=== PATIENT | female | born 1985 | race Caucasian/White ===

== ENCOUNTER → 2017-10-29 | Outpatient (CLI) | payer OTHER | LOC: FIMAGING 08:49 | PROVIDERS: ATTEND Advanced Practice Midwife | DX: Z34.01 Encounter for supervision of normal first pregnancy, first trimester (principal); Z3A.11 11 weeks gestation of pregnancy ==

== ENCOUNTER 2018-05-23 09:00 | Inpatient (IN) | payer OTHER ==
[2018-05-27] MEDS ORDERED: LR 1,000 ML IV PRN (03:40)
[2018-05-27] MEDS ORDERED: MISOPROSTOL 200 MCG TAB PR PRN (03:40)
[2018-05-27] MEDS ORDERED: TERBUTALINE SULFATE 1 MG/ML VIAL IV PRN (03:40)
[2018-05-27] MEDS ORDERED: OXYTOCIN/RINGERS LACTATE 1,000 ML IV PRN (03:40)
[2018-05-27] MEDS ORDERED: IBUPROFEN 600 MG TAB PO PRN (03:40)
[2018-05-27] MEDS ORDERED: OLIVE OIL 118 ML BTL MISC PRN (03:40)
[2018-05-27] MEDS ORDERED: EPSOM SALT 454 GM TP PRN (03:40)
[2018-05-27] MEDS ORDERED: LIDOCAINE 1% 300 MG/30 ML SDV SC PRN (03:40)
[2018-05-27 04:54] LABS: PLATELET COUNT 214 10^3/uL (150-400)
[2018-05-27] MEDS ORDERED: AMMONIA AROMATIC 1 EACH AMP IH ONE (07:04)
[2018-05-27] MEDS ORDERED: TERBUTALINE SULFATE 1 MG/ML VIAL ONE (07:04)
[2018-05-27] MEDS ORDERED: LIDOCAINE 1% 300 MG/30 ML SDV ONE (07:04)
[2018-05-27] MEDS ORDERED: OLIVE OIL 118 ML BTL ONE (07:04)
[2018-05-27] MEDS ORDERED: OXYTOCIN 10 UNIT/ML VIAL ONE (07:05)
[2018-05-27] MEDS ORDERED: MISOPROSTOL 200 MCG TAB ONE (07:05)
--- NOTE | 2018-05-27 08:48 | PDGENHP ---
History and Physical History and Physical: CARE: [facility] HPI: Patient is a 32 yo G 1 P 0 @ 41 weeks 6 days that presents to L&D with complaints of SROM and uterine ctx. EDC: 05/14/18 which is based on LMP: 08/07/18 which is known and consistent with Ultrasound at 8 weeks. Her is complicated by: + ABS which is clinically insignificant, + CF carrier screen, varicella Non-Immune. Review of Systems: Constitutional: Denies any fever, chills, or fatigue HEENT: denies any visual changes, difficulty swallowing, hearing loss Cardiovascular: Denies any chest pain, palpitations, leg swelling Respiratory: denies any cough, wheezing, or shortness of breathe GI: Denies any nausea, vomiting, diarrhea, constipation : denies any dysuria, urgency, frequency, vaginal bleeding Musculoskeletal: denies any muscle or bone pain Skin: denies any rashes Neuro: denies any headache, seizures, lightheadedness, dizziness, or loss of consciousness Psychiatric: denies any depression, anxiety, or SI/HI thoughts HISTORY: Previous OB history: nullip Past medical history: neg Past surgical history: neg Medications: PNV Allergies (list reaction): NKDA LABS: Rh: O+ ABS: Pos Rubella: Immune HbsAg: NR HIV: NR VDRL: NR 1hr: pt declined GC: Neg Chlamydia: Neg Pap: Normal GBS: neg BMI: (prepreg) 23 PHYSICAL EXAM: Constitutional: WNL, A&Ox3 HEENT: normocephalic atraumatic, supple Heart: RRR, no murmur Chest: CTA-B Abdomen: Soft, nontender, gravid SVE: 5/90/-3 at 0700 Extremities: trace edema, negative homans sign Neuro: grossly normal Psych: normal affect assessment: FHT baseline 145, +accels, no decels, moderate variability Contractions: toco q 2-3 Assessment: 1) 32 yo G 1 P 0 with IUP@ 41w6d 2) spontaneous labor 3) GBS neg 4) Cat 1 FHR tracing 5) coping well with labor Plan: 1) Admit to L&D 2) Anticipate vag delivery 3) Intermittent monitoring per [facility] guidelines 4) Pt desires low intervention.
--- NOTE | 2018-05-27 11:21 | OBPROG ---
Labor Progress Note Assessment/Plan: Assessment: Plan: 05/27/18 11:18 IUP at 41 w 6 d active labor Objective: 05/27/18 04:15 Patient ABO/Rh O POSITIVE 05/27/18 04:15 - SVE Dilation (cm): 9 Effacement (%): 90 Station: 0 Membranes: SROM Amniotic Fluid Color: Clear - Contraction Pattern Assessment Current Contraction Pattern: Regular (q 5 min) - FHR Assessment García FHR (bpm): 135 (130-140 with intermittent auscultation, no audible decels with ctx) - AP Antepartum Course: 05/27/18 11:20 anticipate vaginal delivery, Dr. Elder aware of pt progress Oxytocin Orders Assessment - Pre-Induction/Augmentation Assessment Gestational Age: 41 week(s) and 6 day(s) ICD10 Worksheet Patient Problems: Problems Problem Status Onset Labor without complication Acute Post term at 41 weeks gestation Acute - ICD10 Problem Qualifiers (1) Post term at 41 weeks gestation (2) Labor without complication
--- NOTE | 2018-05-27 15:10 | OBDEL ---
Info Type: Vaginal Presentation at Delivery: Vertex L&D Analgesia/Anesthesia Type: None GBS+: No Indications for Delivery: Spontaneous Labor, SROM Vaginal Delivery - Delivery Provider Delivery Physician/CNM: Soraya Hutchinson (Dr. Cat Terrell procyoni) - Labor and Delivery Onset of Contractions Date: 05/27/18 Onset of Contractions Time: 05:30 Onset of Contractions Type: Spontaneous Rupture of Membranes Date: 05/27/18 Rupture of Membranes Time: 01:20 Rupture of Membranes Type: Spontaneous Amniotic Fluid Color: Clear Placenta Delivery Date: 05/27/18 Placenta Delivery Time: 14:36 Total Hours of Labor: 9 Laceration: 2nd Degree Repair: 3-0, Vicryl Vaginal Sponge Count Correct: Yes Vaginal Needle Count Correct: Yes Vaginal Sweep Performed: Yes EBL: 250 Delivery Events: Other (Specify) (compound presentation, R hand by face) Delivery Comment: Mom progressed well to complete with transmission systems operator and partner support for pain management. Pushed ineffectively after complete until small crown, then pushed well with ctx. FHT reassuring throughout 2nd stage with occasional decel during contraction to 90-100 bpm, then return to baseline. Head delivered in WILIAN over intact perineum. Shoulders and body followed atraumatically with maternal pushing effort on next contraction. Compound hand noted at time of delivery. placed on maternal abdomen and assessed by RN. Delayed cord clamping supported for family. FOB cut cord at appoximately 7 min. Placenta delivered spontaneous and appeared intact. Perineum inspected and 2nd degree laceration repaired in usual fashion with 3.0 vicryl under local anesthesia. EBL 250 ml. Mother and baby assisted with breast feeding, both stable in room at this time. - Medications Labor Augmentation/Induction Methods Used: None Labor Augmentation/Induction Indication: Post Dates [place] Data JONATHAN: 05/14/18 Gestational Age: 41 week(s) and 6 day(s) García Delivery Date: 05/27/18 Delivery Time: 14:26 Sex of Infant: Female Score (1 Min): 8 Score (5 Min): 9 (weight not available at this time) ICD10 Worksheet Patient Problems: Problems Problem Status Onset Labor without complication Acute Post term at 41 weeks gestation Acute - ICD10 Problem Qualifiers (1) Post term at 41 weeks gestation (2) Labor without complication
[2018-05-27] MEDS: PROCTOFOAM HC 10 GM CAN PR SCH ×2 (15:33→21:00)
[2018-05-27] MEDS: DOCUSATE SODIUM 100 MG CAP PO PRN (21:45)
[2018-05-27] MEDS: IBUPROFEN 600 MG TAB PO SCH (21:46)
[2018-05-27] MEDS: ACETAMINOPHEN 325 MG TAB PO SCH (23:08)
[2018-05-28] MEDS: IBUPROFEN 600 MG TAB PO SCH ×4 (04:11→23:46)
[2018-05-28] MEDS: ACETAMINOPHEN 325 MG TAB PO SCH ×4 (05:00→23:55)
--- NOTE | 2018-05-28 11:04 | OBPP ---
Progress Note Assessment/Plan: Assessment: 32 y/o G1 s/p PPD #1 2nd degree perineal lac Plan: Routine PP care support Encourage activity 05/28/18 17:17 Subjective/ Course: 05/28/18 17:20 Doing well this morning. going well. Tolerating regular diet, voiding, vaginal bleeding WNL. Pain well controlled with ibuprofen. Objective: 05/27/18 04:15 Temp Pulse Resp BP Pulse Ox 36.4 C 97 16 114/78 96 05/28/18 08:00 05/28/18 08:00 05/28/18 08:00 05/28/18 08:00 05/28/18 08:00 Uterine Position/Fundal Height: Umbilicus -1 Uterine Tone: Firm Physical Exam - Physical Exam EENT: normal ENT inspection Neck: non-tender Respiratory: normal breath sounds Cardiac/Chest: regular rate, rhythm Abdomen: normal bowel sounds Extremities: normal range of motion Skin: normal color, warm/dry Neuro/Psych: alert, normal mood/affect, oriented x 3
[2018-05-28] MEDS: DOCUSATE SODIUM 100 MG CAP PO PRN (11:44)
[2018-05-28] MEDS: PROCTOFOAM HC 10 GM CAN PR SCH ×4 (11:45→21:00)
[2018-05-29] MEDS: ACETAMINOPHEN 325 MG TAB PO SCH ×2 (06:00→12:06)
[2018-05-29 08:00] VITALS: BP 114/72
[2018-05-29] MEDS: IBUPROFEN 600 MG TAB PO SCH (08:02)
--- NOTE | 2018-05-29 09:54 | OBPP ---
Progress Note Assessment/Plan: Assessment: PPD 2 s/p h/o anemia Plan: D/C home, routine care 05/29/18 09:49 Subjective/ Course: 05/28/18 17:20 Doing well this morning. going well. Tolerating regular diet, voiding, vaginal bleeding WNL. Pain well controlled with ibuprofen. 05/29/18 09:50 Pt doing well. States BF going well. sore nipples but manageable. urinating fine. bld is lessening. ready for d/c. Objective: 05/27/18 04:15 Patient ABO/Rh TNP 05/27/18 04:15 Temp Pulse Resp BP Pulse Ox 36.3 C 75 16 114/72 100 05/29/18 07:59 05/29/18 07:59 05/29/18 07:59 05/29/18 07:59 05/29/18 07:59 Uterine Position/Fundal Height: Umbilicus -2 Uterine Tone: Firm Physical Exam - Physical Exam Abdomen: non-tender, soft, other (FF at Umb -2, normal lochia) Extremities: non-tender, pedal edema (mild) Skin: normal color, warm/dry Neuro/Psych: alert, normal mood/affect
--- NOTE | 2018-05-29 10:01 | OBGCSDC ---
General Delivery Information - General Info : 1 Para: 1 Abortions: 0 Type: Vaginal L&D Analgesia/Anesthesia Type: None Admission Date: 05/27/18 Labs: Patient ABO/Rh TNP 05/27/18 04:15 Hct 39.7 % (38.0-47.0) 05/27/18 04:15 - Hospital Course Antepartum: 05/27/18 11:20 anticipate vaginal delivery, Dr. Elder aware of pt progress : 05/28/18 17:20 Doing well this morning. going well. Tolerating regular diet, voiding, vaginal bleeding WNL. Pain well controlled with ibuprofen. 05/29/18 09:50 Pt doing well. States BF going well. sore nipples but manageable. urinating fine. bld is lessening. ready for d/c. Vaginal - Delivery Provider Delivery Physician/CNM: Soraya Hutchinson (Dr. Cat Terrell proctoring) - Diagnosis Labor: Spontaneous Rupture of Membranes Type: Spontaneous Amniotic Fluid Color: Clear Laceration: 2nd Degree Repair: 3-0, Vicryl Delivery Events: Other (Specify) (compound presentation, R hand by face) - Delivery EBL: 250 Data JONATHAN: 05/14/18 Gestational Age: 42 week(s) and 1 day(s) García Delivery Date: 05/27/18 Delivery Time: 14:23 Sex of Infant: Female Weight (gm): 3944 kg Score (1 Min): 8 Score (5 Min): 9 Discharge Information - Discharge Information Condition: Good Instruction/Follow Up: See Instruction Sheet, Four Weeks (with therapist), Six Weeks (with Soraya Hutchinson)
[2018-05-29] MEDS: DOCUSATE SODIUM 100 MG CAP PO PRN (12:17)
== END 2018-05-29 12:30 | disposition home or self-care (01) | DRG 775 ==
LOC: OBSVTOIN 05-27 03:19 → FLD 05-27 03:19 → FOB 05-27 17:25
PROVIDERS: ADMIT Obstetrics & Gynecology; ATTEND Obstetrics & Gynecology
PROC: 10E0XZZ Delivery of Products of Conception, External Approach (ICD-10-PCS; principal; 2018-05-27)
PROC: 0KQM0ZZ Repair Perineum Muscle, Open Approach (ICD-10-PCS; principal; 2018-05-27)
DX: O70.1 Second degree perineal laceration during delivery (principal); O48.0 Post-term pregnancy; O32.6XX0 Maternal care for compound presentation, not applicable or unspecified; Z14.1 Cystic fibrosis carrier; Z37.0 Single live birth; Z3A.42 42 weeks gestation of pregnancy
CPT/HCPCS: 86870-90; 86905-90; 99001-90; J2590; J3105